=== PATIENT | female | born 1980 | race Caucasian/White ===

== ENCOUNTER 2021-06-14 07:40 | Emergency (ER) | payer SELFPAY ==
[~2021-06-14] VITALS: Ht 175.3 cm; Wt 86.4 kg
[2021-06-14 07:51] VITALS: TEMP 97.6
[2021-06-14 08:12] LABS: BASO % 0.6 % (0.0-2.0); EOS # 0.1 K/mm3 (0.0-0.7); EOS % 2.7 % (0.0-4.0); GRAN # 2.9 K/mm3 (1.4-6.5); GRAN % 58.7 % (42.2-75.2); HEMATOCRIT 42.3 % (37.0-47.0); HEMOGLOBIN 14.7 g/dl (12.5-16.0); LYMPH # 1.3 K/mm3 (1.2-3.4); LYMPH % 26.3 % (20.0-51.0); MEAN CELL VOLUME 84 fl (80.0-100.0); MEAN CORPUSCULAR HEMOGLOBIN 29 pg (27-31); MEAN CORPUSCULAR HGB CONC 35 g/dl (33.0-37.0); MEAN PLATELET VOLUME 8.7 fl (7.4-10.4); MONO # 0.6 K/mm3 (0.1-0.6); MONO % 11.5 % (1.7-9.3); PLATELET COUNT 302 K/mm3 (130-400); RED BLOOD COUNT 5.02 M/mm3 (4.10-5.30); REDCELL DISTRIBUTION WIDTH-CV 12.2 % (11.5-14.5)
[2021-06-14 08:27] LABS: ALBUMIN 4.4 gm/dL (3.5-5.0); CALCIUM 8.3 mg/dL (8.4-10.2); CREATININE, serum 0.81 mg/dL (0.57-1.11); POTASSIUM 3.9 mmol/L (3.5-4.5); TOTAL PROTEIN 7.3 gm/dL (6.2-8.1)
[2021-06-14] MEDS ORDERED: PROTONIX 40MG T40 MG PO (10:27)
[2021-06-14 10:50] VITALS: BP 98/65; PULSE 87
== END 2021-06-14 10:50 | disposition home or self-care (01) ==
LOC: COL.ER 07:40
PROVIDERS: Emergency Medicine
DX: K76.0 Fatty (change of) liver, not elsewhere classified (principal); R16.2 Hepatomegaly with splenomegaly, not elsewhere classified; J90 Pleural effusion, not elsewhere classified; R91.1 Solitary pulmonary nodule; Z32.02 Encounter for pregnancy test, result negative
CPT/HCPCS: J1170; J1790; J2270; J2765; J7030; Q9967